=== PATIENT | female | born 1960 | race Caucasian/White ===

== ENCOUNTER 2020-07-09 07:03 | Outpatient (REF) | payer OTHER, SELFPAY | END 2020-07-09 07:04 | disposition home or self-care (01) | LOC: HO.LAB 07:03 | PROVIDERS: Visit Provider Internal Medicine | DX: Z20.828 Contact with and (suspected) exposure to other viral communicable diseases (principal) | CPT/HCPCS: C9803; U0003 ==

== ENCOUNTER 2021-04-23 15:50 | Outpatient (REF) | payer OTHER, SELFPAY | END 2021-04-23 15:51 | disposition home or self-care (01) | LOC: HO.LAB 15:50 | PROVIDERS: Visit Provider Internal Medicine | DX: Z20.822 Contact with and (suspected) exposure to COVID-19 (principal) | CPT/HCPCS: C9803; U0003; U0005 ==

== ENCOUNTER 2021-05-05 15:27 | Outpatient (REF) | payer OTHER, SELFPAY | END 2021-05-05 15:28 | disposition home or self-care (01) | LOC: HO.LAB 15:27 | PROVIDERS: PCP Internal Medicine; Visit Provider Internal Medicine | DX: Z20.822 Contact with and (suspected) exposure to COVID-19 (principal) | CPT/HCPCS: C9803; U0003; U0005 ==

== ENCOUNTER 2021-07-12 07:46 | Outpatient (REF) | payer OTHER, SELFPAY | END 2021-07-12 07:47 | disposition home or self-care (01) | LOC: HO.LAB 07:46 | PROVIDERS: PCP Internal Medicine; Visit Provider Internal Medicine | DX: Z20.822 Contact with and (suspected) exposure to COVID-19 (principal) | CPT/HCPCS: C9803; U0003; U0005 ==